=== PATIENT | male | born 1980 | race Asian ===

== ENCOUNTER 2018-09-09 21:57 | Emergency (ER) | payer BC, OTHER ==
[~2018-09-09] VITALS: Ht 167.6 cm; Wt 63.9 kg
[2018-09-09 22:20] VITALS: Ht 167.6 cm; Wt 63.9 kg
[2018-09-10] MEDS ORDERED: morphine 4 MG/ML VIAL IV STA (01:13)
[2018-09-10] MEDS ORDERED: ONDANSETRON 4 MG INJ IV STA (01:13)
--- NOTE | 2018-09-10 01:26 | ERD ---
ER Documentation Chief Complaint Chief Complaint LRQ AP X 1 day progressively worse HPI HIV positive male 1 day history of right lower quadrant pain. States that the pain is progressively getting worse over the past day. States the pain is currently 8 out of 10. Denies any treatments. States that his CD4 is at 400. Pain is made worse to palpation. He is ambulatory. Denies vomiting, diarrhea, testicular pain, dysuria, constipation, fevers. ROS All systems reviewed and are negative except as per history of present illness. Medications Home Meds Active Scripts Hydrocodone/Acetaminophen ([place] 5-325 Tablet) 1 Each Tablet, 1-2 TAB PO Q6H PRN for PAIN, #15 TAB Prov:CONSTANCE SMITH 09/10/18 Ibuprofen* (Motrin*) 600 Mg Tab, 600 MG PO Q6 for pain, #30 TAB Prov:CONSTANCE SMITH 09/10/18 Allergies Allergies: Coded Allergies: No Known Allergy (Unverified , 09/09/18) FmHx Family History: No diabetes, No coronary disease, No other Physical Exam Vitals Vital Signs Date Temp Pulse Resp B/P (MAP) Pulse Ox O2 O2 Flow FiO2 Time Delivery Rate 09/10/18 97.9 70 17 123/88 98 Room Air 05:40 (100) 09/09/18 98.1 82 18 133/87 97 22:20 (102) Physical Exam Const: No acute distress Head: Atraumatic Eyes: Normal Conjunctiva ENT: Normal External Ears, Nose and Mouth. Neck: Full range of motion. No meningismus. Resp: Clear to auscultation bilaterally Cardio: Regular rate and rhythm, no murmurs Abd: Positive McBurney's. Skin: No petechiae or rashes Back: No midline or flank tenderness Ext: No cyanosis, or edema Neur: Awake and alert Psych: Normal Mood and Affect Result Diagram: 09/10/1813709/10/18137 Results 24 hrs Laboratory Tests Test 09/10/18 01:38 White Blood Count 6.8 10^3/ul Red Blood Count 5.56 10^6/ul Hemoglobin 15.1 g/dl Hematocrit 47.5 % Mean Corpuscular Volume 85.4 fl Mean Corpuscular Hemoglobin 27.2 pg Mean Corpuscular Hemoglobin Concent 31.8 g/dl Red Cell Distribution Width 12.5 % Platelet Count 225 10^3/UL Mean Platelet Volume 10.4 fl Immature Granulocytes % 0.100 % Neutrophils % 54.2 % Lymphocytes % 35.2 % Monocytes % 8.6 % Eosinophils % 1.8 % Basophils % 0.1 % Nucleated Red Blood Cells % 0.0 /100WBC Immature Granulocytes # 0.010 10^3/ul Neutrophils # 3.7 10^3/ul Lymphocytes # 2.4 10^3/ul Monocytes # 0.6 10^3/ul Eosinophils # 0.1 10^3/ul Basophils # 0.0 10^3/ul Nucleated Red Blood Cells # 0.0 10^3/ul Urine Color YELLOW Urine Clarity CLEAR Urine pH 7.0 Urine Specific [place] 1.019 Urine Ketones NEGATIVE mg/dL Urine Nitrite NEGATIVE mg/dL Urine Bilirubin NEGATIVE mg/dL Urine Urobilinogen 1+ mg/dL Urine Leukocyte Esterase NEGATIVE Jennifer/ul Urine Hemoglobin NEGATIVE mg/dL Urine Glucose NEGATIVE mg/dL Urine Total Protein NEGATIVE mg/dl Sodium Level 144 mmol/L Potassium Level 4.4 mmol/L Chloride Level 104 mmol/L Carbon Dioxide Level 32 mmol/L Anion Gap 8 Blood Urea Nitrogen 19 mg/dl Creatinine 1.18 mg/dl Est Glomerular Filtrat Rate mL/min > 60 mL/min Glucose Level 96 mg/dl Calcium Level 9.8 mg/dl Total Bilirubin 0.6 mg/dl Direct Bilirubin 0.00 mg/dl Indirect Bilirubin 0.6 mg/dl Aspartate Amino Transf (AST/SGOT) 45 IU/L Alanine Aminotransferase (ALT/SGPT) 58 IU/L Alkaline Phosphatase 71 IU/L Total Protein 8.5 g/dl Albumin 4.6 g/dl Globulin 3.90 g/dl Albumin/Globulin Ratio 1.17 Lipase 70 U/L Current Medications Medications Dose Sig/Tk Start Time Status Last (Trade) Ordered Route PRN Stop Time Admin Dose Reason Admin Morphine 4 mg ONCE STAT 09/10/18 DC 09/10/18 Sulfate IV 01:13 09/10/18 02:15 (morphine) 01:16 Ondansetron 4 mg ONCE STAT 09/10/18 DC 09/10/18 HCl (Zofran IV 01:13 09/10/18 02:15 Inj) 01:16 Sodium 100 ml @ ud STK-MED 09/10/18 DC 09/10/18 Chloride ONCE .ROUTE 03:49 09/10/18 03:52 03:50 Iohexol 150 ml STK-MED 09/10/18 DC 09/10/18 (Omnipaque ONCE .ROUTE 03:49 09/10/18 03:51 300mg/ ml) 03:50 Procedures/MDM DIAGNOSTIC IMAGING REPORT Patient: TONYA GRANDA : 1980 Age: 37 Sex: M MR #: [id number] DOS: 09/10/18 0113 Ordering MD: CONSTANCE MSITH Location: [facility] Room/Bed: PROCEDURE: CT Abdomen and Pelvis With Intravenous Contrast CLINICAL INDICATION: Abdominal Pain TECHNIQUE: Axial computed tomography images of the abdomen and pelvis with intravenous contrast. Sagittal and coronal reformatted images were created and reviewed. CTDIvol (mGy) = <6.45 mGy>; total DLP (mGy-cm) = <390.33 mGy.cm>. This CT exam was performed using one or more of the following dose reduction techniques: automated exposure control, adjustment of the mA and/or kV according to patient size, and/or use of iterative reconstruction technique. DICOM images are available. CONTRAST: 100 mL of Omnipaque-300 was administered intravenously. COMPARISON: None FINDINGS: LUNG BASES: Slight bibasilar atalectasis. HEART: Trace pericardial fluid. ABDOMEN: LIVER: There may be minimal hepatic steatosis. No focal liver lesions are se en. GALLBLADDER AND BILE DUCTS: Unremarkable No calcified stones. No ductal dilation. PANCREAS: The pancreatic tail is slightly lobulated in contour but no definite focal mass is seen. No pancreatic ductal dilatation or peripancreatic inflammatory change. SPLEEN: Unremarkable No splenomegaly. ADRENALS: Unremarkable No mass. KIDNEYS AND URETERS: Tiny sub centimeter right renal cortical cyst. Otherwise unremarkable kidneys. No hydronephrosis or renal calculi. STOMACH AND BOWEL: There is slightly prominent mucosal enhancement of the stomach with mild wall thickening of the distal gastric body. Question gastritis. No evidence for small bowel obstruction, free air, or abscess. PELVIS: APPENDIX: Normal appendix. BLADDER: Unremarkable No mass. REPRODUCTIVE: Unremarkable. ABDOMEN and PELVIS: INTRAPERITONEAL SPACE: There is a 1.6 cm structure along the lateral aspect of the cecum with peripheral enhancement and fat density centrally with adjacent inflammatory change of the pericolonic fat. The appearance is consistent with epiploic appendagitis. Trace pelvic free fluid. BONES/JOINTS: No bony abnormality is seen. SOFT TISSUES: Unremarkable VASCULATURE: Incidental note is made of a common origin of the celiac and superior mesenteric arteries. Separate origin of the left gastric artery. No abdominal aortic aneurysm. LYMPH NODES: Unremarkable No enlarged lymph nodes. OTHER FINDINGS: IMPRESSION: 1. Epiploic appendagitis of the lateral cecum. Trace pelvic free fluid. 2. There is slightly prominent mucosal enhancement of the stomach with mild wall thickening of the distal gastric body. Question gastritis. 3. Normal appendix. 4. No evidence for small bowel obstruction, free air, or abscess. RPTAT: [facility] Physician Marty Date Time Electronically viewed and signed by Lois Flower Physician on 09/10/2018 04:19 LE/ CC: CONSTANCE SMITH [phone] MDM: Because of patient's complaint of lower right quadrant pain as well as McBurney's tenderness on exam, CT with contrast was ordered. Results are positive for epiploic appendagitis. Results were discussed with my supervising physician and he stated that patient would be fit for discharge with 3-day course of ciprofloxacin and pain meds. Patient stated that his CD4 count is over 400 so I have low suspicion for immunocompromise. I low suspicion for intra-abdominal abscess, appendicitis, or any other emergent condition. Patient discharged with strict ER precautions. Patient advised to follow up with PMD. All questions answered at discharge. Departure Diagnosis: Primary Impression: Epiploic appendagitis Condition: Stable CONSTANCE SMITH September 10, 2018 01:26
[2018-09-10] MEDS ORDERED: SOD CHLORIDE 0.9% 100 ML ONE (03:49)
[2018-09-10] MEDS ORDERED: IOHEXOL 300MG/ML 150 ML BTL ONE (03:49)
[2018-09-10] MEDS ORDERED: HYDR-4011 PO (05:19)
[2018-09-10] MEDS ORDERED: IBUP-1542 PO (05:19)
[2018-09-10 05:40] VITALS: BP 123/88; PULSE 70; RESP 17
== END 2018-09-10 05:40 | disposition home or self-care (01) ==
LOC: FTE 21:57
DX: K38.8 Other specified diseases of appendix (principal); B20 Human immunodeficiency virus [HIV] disease
CPT/HCPCS: 36415; 74177; 80053; 81003; 83690; 85025; 96374; 96375; 99285; J2270; J2405; Q9967